=== PATIENT | female | born 2005 | race Two or more races ===

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

== ENCOUNTER 2025-02-15 10:13 | Outpatient (CLI) | payer OTHER | END 2025-02-15 10:15 | disposition home or self-care (01) | LOC: PRENATAL 10:13 | PROVIDERS: ATTEND Obstetrics & Gynecology Maternal & Fetal Medicine | DX: O36.80X0 Pregnancy with inconclusive fetal viability, not applicable or unspecified (principal); Z36.82 Encounter for antenatal screening for nuchal translucency; Z14.8 Genetic carrier of other disease; Z3A.12 12 weeks gestation of pregnancy ==

== ENCOUNTER 2025-04-15 11:39 | Outpatient (CLI) | payer OTHER | END 2025-04-15 11:44 | disposition home or self-care (01) | LOC: PRENATAL 11:39 | PROVIDERS: ATTEND Obstetrics & Gynecology Maternal & Fetal Medicine | DX: O44.00 Complete placenta previa NOS or without hemorrhage, unspecified trimester (principal); O99.210 Obesity complicating pregnancy, unspecified trimester; Z3A.20 20 weeks gestation of pregnancy ==

== ENCOUNTER 2025-07-16 11:49 | Outpatient (CLI) | payer OTHER | END 2025-07-16 11:56 | disposition home or self-care (01) | LOC: PRENATAL 11:49 | PROVIDERS: ATTEND Obstetrics & Gynecology Maternal & Fetal Medicine | DX: O26.843 Uterine size-date discrepancy, third trimester (principal); O36.8130 Decreased fetal movements, third trimester, not applicable or unspecified; O99.213 Obesity complicating pregnancy, third trimester; Z3A.33 33 weeks gestation of pregnancy ==